=== PATIENT | male | born 2000 | race Caucasian/White ===

== ENCOUNTER 2021-07-09 13:30 | Emergency (ER) | payer OTHER ==
[~2021-07-09] VITALS: Ht 188 cm; Wt 94.0 kg
[2021-07-09] MEDS ORDERED: ALBUTEROL 90 MCG/ACT 8GM HFA INHALER INH ONE (15:55)
[2021-07-09] MEDS ORDERED: TESS100C PO (16:05)
[2021-07-09] MEDS ORDERED: VENTAER INH (16:05)
[2021-07-09 16:33] VITALS: O2SAT 98
[2021-07-09 16:37] VITALS: BP 136/68
== END 2021-07-09 16:50 | disposition home or self-care (01) ==
LOC: M ED 13:30
DX: J06.9 Acute upper respiratory infection, unspecified (principal); F17.200 Nicotine dependence, unspecified, uncomplicated
CPT/HCPCS: 94640; 99284; U0003